=== PATIENT | male | born 1955 | race Caucasian/White ===

== ENCOUNTER 2016-12-13 08:06 | Day surgery (SDC) | payer BC ==
[~2016-12-13] VITALS: Ht 165.1 cm; Wt 72.6 kg
[~2016-12-13 08:06] MED LIST: ASPIR 8181 M1 PO; DAILY VALUE1 EACH PO; FLEXERIL10 MG PO; NAPROXEN500 MG PO; PROTONIX40 MG PO
[2016-12-13 08:33] VITALS: BP 156/80
[2016-12-13 11:30] VITALS: BP 146/74
[2016-12-13 11:46] VITALS: BP 141/79
== END 2016-12-13 11:55 | disposition home or self-care (01) ==
LOC: SDC 08:06
DX: H35.342 Macular cyst, hole, or pseudohole, left eye (principal); H35.372 Puckering of macula, left eye; K21.9 Gastro-esophageal reflux disease without esophagitis; K44.9 Diaphragmatic hernia without obstruction or gangrene; E66.3 Overweight; Z68.27 Body mass index [BMI] 27.0-27.9, adult; Z82.49 Family history of ischemic heart disease and other diseases of the circulatory system; Z82.0 Family history of epilepsy and other diseases of the nervous system; Z83.3 Family history of diabetes mellitus; Z88.5 Allergy status to narcotic agent
CPT/HCPCS: J0690; J0713; J2405; J3300

== ENCOUNTER 2017-10-13 21:19 | Emergency (ER) | payer OTHER ==
[~2017-10-13] VITALS: Ht 165.1 cm; Wt 73.2 kg
[2017-10-14] MEDS ORDERED: KEFLEX500 MG PO (01:22)
[2017-10-14 01:57] VITALS: BP 156/85
== END 2017-10-14 02:36 | disposition home or self-care (01) ==
LOC: EME 21:19
PROC: 2Y41X5Z Packing of Nasal Region using Packing Material (ICD-10-PCS; principal; 2017-10-13)
DX: R04.0 Epistaxis (principal); K21.9 Gastro-esophageal reflux disease without esophagitis; Z88.5 Allergy status to narcotic agent; Z79.82 Long term (current) use of aspirin
CPT/HCPCS: 99281; 99284